=== PATIENT | female | born 1945 | race Caucasian/White ===

== ENCOUNTER 2021-08-24 09:49 | Emergency (ER) | payer MEDICARE, OTHER ==
[~2021-08-24] VITALS: Ht 154.9 cm; Wt 86.2 kg
[2021-08-24 10:01] VITALS: BP 148/81
[2021-08-24] MEDS ORDERED: FAMOTIDINE 20 MG TABLET. PO ONE (10:15)
[2021-08-24] MEDS ORDERED: predniSONE 10 MG TABLET PO ONE (10:15)
--- NOTE | 2021-08-24 10:31 | PHYS DOC ---
Past Medical History Past Medical History: High Cholesterol, Hypothyroid Past Surgical History: Hysterectomy, Tonsillectomy, Other Additional Past Surgical Histo: R ARM,ADENOIDECTOMY,2 BRAIN SURGERIES Smoking Status: Never Smoker Alcohol Use: None General Adult EDM: Chief Complaint: ALLERGIC REACTION HPI: HPI: Patient is a 75-year-old female who presents today with hives. Patient states she woke up this morning with a number of hives located on her stomach her back her legs and her forearms. Patient states that yesterday patient was cleaning quite a bit and she states that she was moving around a lot of things in her house and she states she may have gotten into something at her house, she states she has not changed any soaps or detergents in her household. Patient states that she has a past medical history of multiple allergies, she does not take any antihistamines on a daily basis she states she had an allergic reaction to diphenhydramine and does not take that at all for any allergic symptoms. Review of Systems: Review of Systems: Constitutional: Denies fever or chills. [] Eyes: Denies change in visual acuity. [] HENT: Denies nasal congestion or sore throat. [] Respiratory: Denies cough or shortness of breath. [] Cardiovascular: Denies chest pain or edema. [] GI: Denies abdominal pain, nausea, vomiting, bloody stools or diarrhea. [] : Denies dysuria. [] Musculoskeletal: Denies back pain or joint pain. [] Integument: Hives Neurologic: Denies headache, focal weakness or sensory changes. [] Endocrine: Denies polyuria or polydipsia. [] Lymphatic: Denies swollen glands. [] Psychiatric: Denies depression or anxiety. [] Heart Score: C/O Chest Pain: No Risk Factors: Risk Factors: DM, Current or recent (<one month) smoker, HTN, HLP, family history of CAD, obesity. Risk Scores: Score 0 - 3: 2.5% MACE over next 6 weeks - Discharge Home Score 4 - 6: 20.3% MACE over next 6 weeks - Admit for Clinical Observation Score 7 - 10: 72.7% MACE over next 6 weeks - Early Invasive Strategies Current Medications: Current Medications Medications (Trade) Dose Ordered Sig/Jeferson Start Time Stop Time Status Last Admin Dose Admin Famotidine (Pepcid) 20 mg 1X ONCE 08/24/21 10:15 08/24/21 10:17 DC Prednisone (Prednisone) 50 mg 1X ONCE 08/24/21 10:15 08/24/21 10:17 DC Allergies: Allergies: Allergies Coded Allergies Type Severity Reaction Last Updated Verified diphenhydramine Allergy Severe ANAPHYLAXIS 08/24/21 Yes Penicillins Allergy Intermediate UNKNOWN 08/24/21 Yes codeine Allergy Intermediate UNKNOWN 08/24/21 Yes Physical Exam: PE: Constitutional: Well developed, well nourished, no acute distress, non-toxic appearance. [] HENT: Normocephalic, atraumatic, bilateral external ears normal, oropharynx moist, no oral exudates, nose normal. [] Eyes: PERRLA, EOMI, conjunctiva normal, no discharge. [] Neck: Normal range of motion, no tenderness, supple, no stridor. [] Cardiovascular:Heart rate regular rhythm, no murmur [] Lungs & Thorax: Bilateral breath sounds clear to auscultation [] Abdomen: Bowel sounds normal, soft, no tenderness, no masses, no pulsatile masses. [] Skin: Raised reddened areas noted on her abdomen, upper back, and forearm area as well as her ankles. Back: No tenderness, no CVA tenderness. [] Extremities: No tenderness, no cyanosis, no clubbing, ROM intact, no edema. [] Neurologic: Alert and oriented X 3, normal motor function, normal sensory function, no focal deficits noted. [] Psychologic: Affect normal, judgement normal, mood normal. [] Current Patient Data: Vital Signs: Vital Signs Date Time Temp Pulse Resp B/P (MAP) Pulse Ox O2 Delivery O2 Flow Rate FiO2 08/24/21 10:01 97.8 68 17 148/81 (103) 99 Room Air 97.8 Vital Signs Date Time Temp Pulse Resp B/P (MAP) Pulse Ox O2 Delivery O2 Flow Rate FiO2 08/24/21 10:01 97.8 68 17 148/81 (103) 99 Room Air 97.8 EKG: EKG: [] Radiology/Procedures: Radiology/Procedures: [] Course & Med Decision Making: Course & Med Decision Making Pertinent Labs and Imaging studies reviewed. (See chart for details) 1054 reassessment of patient shows that her redness in her hives is improved, patient states her itching has improved greatly, patient denies any shortness of breath, lip swelling, or tongue swelling. Patient will be given a prescription for prednisone for the next 5 days as well as advised to take Pepcid 20 mg twice daily. Patient is to follow-up with Dr. Goyal her primary care physician on Thursday for further evaluation and management. Patient was given restrict return precautions to return should she have any increased shortness of breath, swelling of her lips or face, or itching has returned or the hives worsen in any way. Dragon Disclaimer: Dragon Disclaimer: This electronic medical record was generated, in whole or in part, using a voice recognition dictation system. Departure Departure Impression: Primary Impression: Hives Disposition: HOME / SELF CARE / HOMELESS Condition: STABLE Referrals: STEFFANY GOYAL MD Patient Instructions: Hives Additional Instructions: Prednisone 50 mg daily starting tomorrow Pepcid 20 mg twice daily for 5 days Follow-up with with Dr. Goyal on Thursday for further evaluation and management of your hives Return should she have any increased shortness of breath, swelling of her lips or face, or itching has returned or the hives worsen in any way. Scripts Famotidine (PEPCID) 20 Mg Tablet 20 MG PO BID for 5 Days, #10 TAB Prov: ELVIS CONNOR [employer]OC[employer] 08/24/21 Prednisone (PREDNISONE) 50 Mg Tablet 1 TAB PO DAILY, #5 TAB Prov: ELVIS CONNOR [employer] 08/24/21 LEVIS CONNOR ASS[employer]ATE [employer] August 24, 2021 10:31
[2021-08-24] MEDS ORDERED: FAMO-63 PO (10:58)
[2021-08-24] MEDS ORDERED: PRED50TA PO (10:58)
== END 2021-08-24 11:04 | disposition home or self-care (01) ==
LOC: ER 09:49
DX: L50.9 Urticaria, unspecified (principal); E78.00 Pure hypercholesterolemia, unspecified; E03.9 Hypothyroidism, unspecified; Z88.0 Allergy status to penicillin; Z88.5 Allergy status to narcotic agent; Z88.8 Allergy status to other drugs, medicaments and biological substances
CPT/HCPCS: 99283; J7512